=== PATIENT | male | born 2000 | race Caucasian/White ===

== ENCOUNTER 2023-11-19 18:50 | Emergency (ER) | payer SELFPAY ==
[~2023-11-19] VITALS: Ht 170.2 cm; Wt 67.1 kg
[2023-11-19 19:12] VITALS: BP 115/78; PULSE 75; RESP 18; TEMP 97.8; O2SAT 99
[2023-11-19] MEDS ORDERED: ATA25 PO (21:07)
[2023-11-19 21:20] VITALS: BP 115/78; PULSE 75; RESP 18; TEMP 97.8; O2SAT 99
[2023-11-19] MEDS ORDERED: ACET-503 PO (21:25)
[2023-11-23] MEDS ORDERED: ATA25 PO (21:54)
[2023-11-23] MEDS ORDERED: ACET-503 PO (21:54)
== END 2023-11-19 21:20 | disposition home or self-care (01) ==
LOC: MED 18:50
DX: R55 Syncope and collapse (principal); F41.9 Anxiety disorder, unspecified
CPT/HCPCS: 93005; 99283